=== PATIENT | female | born 1990 | race Caucasian/White ===

== ENCOUNTER 2018-04-18 02:54 | Emergency (ER) | payer MEDICARE, MEDICAID ==
[~2018-04-18] VITALS: Ht 160 cm; Wt 69.0 kg
[2018-04-18 07:14] LABS: CHLORIDE 105 mEq/L (98-107)
[2018-04-18 07:15] LABS: INR 1.1; PROTHROMBIN TIME 11.4 sec (9.4-11.6)
[2018-04-18 07:27] LABS: BASOPHILS % 0.3 % (0.0-2.0); EOSINOPHILS % 0.3 % (0.0-5.0); HEMATOCRIT. 39.3 % (36.0-48.0); HEMOGLOBIN. 13.2 g/dL (12.0-16.0); LYMPHOCYTES % 20.1 % (20.0-50.0); MEAN CORPUSCULAR HEMOGLOBIN 30.4 pg (28.0-32.0); MEAN CORPUSCULAR VOLUME 90.8 fL (81.0-99.0); MEAN PLATELET VOLUME 9.1 fl (7.4-10.4); MONOCYTES % 8.9 % (2.0-8.0); NEUTROPHILS % 70.4 % (40.0-76.0); PLATELET 260 x1000/uL (130-400); RED BLOOD CELL COUNT 4.33 mill/uL (4.2-5.4); RED CELL DISTRIBUTION WIDTH 14.4 % (11.6-14.6)
[2018-04-18 07:35] LABS: HCG SCREEN NEGATIVE
[2018-04-18 07:48] LABS: CLARITY URINE CLEAR (CLEAR); COLOR URINE YELLOW (YELLOW); KETONES URINE TRACE (NEGATIVE); LEUKOCYTE ESTERASE URINE NEGATIVE (NEGATIVE); NITRITE URINE NEGATIVE (NEGATIVE); OCCULT BLOOD URINE NEGATIVE (NEGATIVE); PROTEIN URINE NEGATIVE (NEGATIVE); SPECIFIC GRAVITY URINE 1.009 (1.005-1.030); UROBILINOGEN URINE 0.2 E.U./dL (0.2-1.0)
[2018-04-18 11:00] VITALS: BP 133/84
== END 2018-04-18 11:43 | disposition home or self-care (01) ==
LOC: ER 03:09
DX: R10.30 Lower abdominal pain, unspecified (principal); F41.9 Anxiety disorder, unspecified; R39.15 Urgency of urination; R20.2 Paresthesia of skin; K59.00 Constipation, unspecified; Z98.890 Other specified postprocedural states
CPT/HCPCS: 36415; 74176; 80053; 81003; 83690; 84703; 85025; 85610; 85730; 99285; A4315

== ENCOUNTER 2018-05-25 00:16 | Emergency (ER) | payer MEDICARE, MEDICAID ==
[~2018-05-25] VITALS: Ht 165.1 cm; Wt 68.0 kg
[2018-05-25] MEDS ORDERED: LORAZEPAM 1MG TABLET PO ONE ×2 (00:45→18:00)
[2018-05-25] MEDS ORDERED: GABAPENTIN 300MG CAPSULE PO STA (01:02)
[2018-05-25] MEDS: GABAPENTIN 300MG CAPSULE PO SCH ×2 (01:16→11:19)
[2018-05-25 01:25] LABS: BASOPHILS % 0.5 % (0.0-2.0); EOSINOPHILS % 0.6 % (0.0-5.0); HEMATOCRIT. 39.7 % (36.0-48.0); HEMOGLOBIN. 13.3 g/dL (12.0-16.0); LYMPHOCYTES % 24.2 % (20.0-50.0); MEAN CORPUSCULAR HEMOGLOBIN 30.2 pg (28.0-32.0); MEAN PLATELET VOLUME 8.5 fl (7.4-10.4); MONOCYTES % 10.2 % (2.0-8.0); NEUTROPHILS % 64.5 % (40.0-76.0); PLATELET 233 x1000/uL (130-400); RED BLOOD CELL COUNT 4.41 mill/uL (4.2-5.4); RED CELL DISTRIBUTION WIDTH 13.9 % (11.6-14.6)
[2018-05-25 01:32] LABS: CHLORIDE 105 mEq/L (98-107)
[2018-05-25 01:39] LABS: ETHANOL BLOOD < 10 mg/dL
[2018-05-25 01:43] LABS: HCG SCREEN NEGATIVE
[2018-05-25 02:36] LABS: *BENZODIAZEPINES SCREEN URINE NEGATIVE (NEGATIVE); *COCAINE SCREEN URINE NEGATIVE (NEGATIVE)
[2018-05-25 02:37] LABS: CANNABINOID URINE SCREEN NEGATIVE (NEGATIVE); METHADONE URINE SCREEN NEGATIVE (NEGATIVE); OPIATES URINE SCREEN NEGATIVE (NEGATIVE); PHENCYCLIDINE URINE SCREEN NEGATIVE (NEGATIVE)
[2018-05-25 03:18] LABS: *AMPHETAMINES SCREEN URINE NEGATIVE (NEGATIVE); *BARBITURATES SCREEN URINE NEGATIVE (NEGATIVE)
[2018-05-25] MEDS ORDERED: LORAZEPAM 2MG/ML CPJ IM ONE (18:30)
[2018-05-26] MEDS ORDERED: ACETAMINOPHEN 325MG TABLET PO ONE (11:00)
[2018-05-26] MEDS: GABAPENTIN 300MG CAPSULE PO SCH (12:49)
[2018-05-26 17:39] VITALS: BP 122/82
== END 2018-05-26 17:41 | disposition home or self-care (01) ==
LOC: ER 00:16
DX: R45.851 Suicidal ideations (principal); Z93.1 Gastrostomy status; Z87.440 Personal history of urinary (tract) infections; Z98.890 Other specified postprocedural states
CPT/HCPCS: 36415; 80048; 80305; 80307; 80329; 84703; 85025; 99284; G0482

== ENCOUNTER 2018-06-09 11:01 | Emergency (ER) | payer MEDICARE, MEDICAID ==
[~2018-06-09] VITALS: Ht 165.1 cm; Wt 69.0 kg
[2018-06-09 12:50] LABS: CLARITY URINE TURBID (CLEAR); COLOR URINE DARK YELLOW (YELLOW); KETONES URINE TRACE (NEGATIVE); LEUKOCYTE ESTERASE URINE 3+ (NEGATIVE); NITRITE URINE NEGATIVE (NEGATIVE); OCCULT BLOOD URINE NEGATIVE (NEGATIVE); PROTEIN URINE NEGATIVE (NEGATIVE); SPECIFIC GRAVITY URINE 1.025 (1.005-1.030); UROBILINOGEN URINE 0.2 E.U./dL (0.2-1.0)
[2018-06-09 16:14] VITALS: BP 122/67
== END 2018-06-09 18:21 | disposition home or self-care (01) ==
LOC: ER 11:01
DX: N39.0 Urinary tract infection, site not specified (principal)
CPT/HCPCS: 81003; 81025; 99283